=== PATIENT | female | born 1995 | race Asian ===

== ENCOUNTER 2017-04-16 12:01 | Emergency (ER) | payer BC ==
[2017-04-16 12:19] VITALS: BP 101/76; PULSE 75; RESP 17; TEMP 99; O2SAT 96
--- NOTE | 2017-04-16 13:39 | EDPHY ---
H & P Stated Complaint: blood in urine/?uti for 2 weeks/resistant to abx/may have had trauma to ure HPI/ROS: HPI CHIEF COMPLAINT: Dysuria HISTORY OF PRESENT ILLNESS: This patient very pleasant 21-year-old female she is otherwise healthy no significant medical history she reports to me 2 weeks ago she developed a urinary tract infection she was seen at her doctor's office and a urine culture was sent she was placed on Macrobid she did grow out E coli she reports. She completed the course of back orbit and felt better. This was 2 weeks ago or 2 Monday days ago. She intermittently had intercourse over the past 2 weeks and she knows after having intercourse she had some blood in her urine and dysuria. She decided come to the emergency room today as she has ongoing dysuria is concerned she may have a recurrent urinary tract infection. Additionally she reports that she may have had trauma to her urethra during intercourse. She is concerned that she may have trauma. She denies any external visible trauma. She denies back pain, fever, vomiting or nausea. Main complaint is dysuria. Has seen some blood in her urine. Past Medical History: Denies medical history Past Surgical History: Denies surgical history Social History: Denies daily use drugs alcohol tobacco products. [employer] student. Family History: Noncontributory ROS REVIEW OF SYSTEMS: A comprehensive 10 point review of systems is otherwise negative aside from elements mentioned in the history of present illness. Exam Constitutional appears well nontoxic triage nursing summary reviewed, vital signs reviewed, awake/alert. Eyes normal conjunctivae and sclera, EOMI, PERRLA. HENT normal inspection, atraumatic, moist mucus membranes, no epistaxis, neck supple/ no meningismus, no raccoon eyes. Respiratory clear to auscultation bilaterally, normal breath sounds, no respiratory distress, no wheezing. Cardiovascular rate normal, regular rhythm, no murmur, no edema, distal pulses normal. Gastrointestinal soft, non-tender, no rebound, no guarding, normal bowel sounds, no distension, no pulsatile mass. Genitourinary no CVA tenderness. I did evaluate her urethra externally. Valeria RN at bedside as business development recruiter. Tampon in place. I do not appreciate any abnormality of her external urethral opening. No visible trauma. Musculoskeletal no midline vertebral tenderness, full range of motion, no calf swelling, no tenderness of extremities, no meningismus, good pulses, neurovascularly intact. Skin pink, warm, & dry, no rash, skin atraumatic. Neurologic awake, alert and oriented x 3, AAOx3, moves all 4 extremities equally, motor intact, sensory intact, CN II-XII intact, normal cerebellar, normal vision, normal speech. Psychiatric normal mood/affect. Heme/Lymph/Immune no lymphadenopathy. Differential Diagnosis: Includes but is not limited to in a particular order, UTI, cystitis, urethritis, urethral tear STI. Medical Decision Making: Plan for this patient external vaginal exam to evaluate urethral pain. Send UA and urine culture. Started on Keflex and Pyridium. Referral to Urology. Return precautions given to the patient as well. 1447: Urine culture sent. Will treat for UTI given symptoms. Prescription for Keflex and Pyridium. Patient understands to follow up with her primary care doctor or urologist. Return emergency room if worsening symptoms questions concerns she understands. Source: Patient - Personal History LMP (Females 10-55): Over 28 Days Ago Current Tetanus/Diphtheria Vaccine: Yes - Medical/Surgical History Hx Asthma: No Hx Chronic Respiratory Disease: No Hx Diabetes: No Hx Cardiac Disease: No Hx Renal Disease: No Hx Cirrhosis: No Hx Alcoholism: No Hx HIV/AIDS: No Hx Splenectomy or Spleen Trauma: No Other PMH: ear tumor - Social History Smoking Status: Never smoked Constitutional: Initial Vital Signs Temperature (C) 37.2 C 04/16/17 12:15 Heart Rate 75 04/16/17 12:15 Respiratory Rate 17 04/16/17 12:15 Blood Pressure 101/76 04/16/17 12:15 O2 Sat (%) 96 04/16/17 12:15 O2 Delivery Mode Room Air Allergies/Adverse Reactions: No Known Allergies Allergy (Unverified 04/16/17 12:14) Home Medications: Medication Instructions Recorded Cephalexin [Keflex] 500 mg PO Q6H #28 cap 04/16/17 Nitrofurantoin 04/16/17 Phenazopyridine HCl [Pyridium] 200 mg PO TID #6 tab 04/16/17 Medical Decision Making - Data Points Laboratory Results: 04/16/17 12:20 Urine Color YELLOW Urine Appearance CLEAR Urine pH 6.0 (5.0-7.5) Ur Specific [place] 1.016 (1.002-1.030) Urine Protein NEGATIVE (NEGATIVE) Urine Ketones NEGATIVE (NEGATIVE) Urine Blood NEGATIVE (NEGATIVE) Urine Nitrate NEGATIVE (NEGATIVE) Urine Bilirubin NEGATIVE (NEGATIVE) Urine Urobilinogen NEGATIVE EU EU (0.2-1.0) Ur Leukocyte Esterase NEGATIVE (NEGATIVE) Urine RBC 1-3 /hpf /hpf (0-3) Urine WBC 1-3 /hpf /hpf (0-3) Ur Epithelial Cells TRACE /lpf /lpf (NONE-1+) Hyaline Casts 1-5 /lpf /lpf (0-1) Urine Mucus TRACE /lpf /lpf (NONE-1+) Urine Glucose NEGATIVE (NEGATIVE) Departure - Departure Disposition: Home, Routine, Self-Care Clinical Impression: Urinary tract infection Qualifiers: Urinary tract infection type: acute cystitis Hematuria presence: with hematuria Qualified Code(s): N30.01 - Acute cystitis with hematuria Condition: Good Instructions: Urinary Tract Infection in Women (ED), Dysuria (ED) Referrals: NONE *PRIMARY CARE P,. [Primary Care Provider] - As per Instructions Yahaira Buckley MD [Medical Doctor] - As per Instructions Prescriptions: Cephalexin [Keflex] 500 mg PO Q6H #28 cap Phenazopyridine HCl [Pyridium] 200 mg PO TID #6 tab
[2017-04-16 14:00] LABS: COLOR YELLOW; LEUKOCYTE ESTERASE,URINE NEGATIVE (NEGATIVE); NITRITE,URINE NEGATIVE (NEGATIVE)
[2017-04-16 14:02] LABS: MUCUS TRACE /lpf (NONE-1+)
== END 2017-04-16 14:54 | disposition home or self-care (01) ==
DX: N30.01 Acute cystitis with hematuria (principal); B96.89 Other specified bacterial agents as the cause of diseases classified elsewhere

== ENCOUNTER 2018-03-01 14:12 | Emergency (ER) | payer BC ==
[2018-03-01 14:54] LABS: PLATELET COUNT 263 10^3/uL (150-400)
--- NOTE | 2018-03-01 15:27 | EDPHY ---
H & P Time Seen by Provider: 03/01/18 14:13 HPI/ROS: CHIEF COMPLAINT: Near syncope HISTORY OF PRESENT ILLNESS: 22-year-old female presents to the emergency department by ambulance after having a near syncopal episode. The patient was going to the bathroom in the injuring building and was feeling lightheaded. She lowered herself to the ground and had a near syncopal episode. She has on the 1st day of her menstrual cycle. She has had similar symptoms in the past with syncope which she thought was associated with her. A few months ago. She denies . She has some mild abdominal cramping associated with her period. No back pain. No pain in her chest or difficulty breathing. No recent URI symptoms. No reported trauma. No seizure activity or postictal state. She currently she states she is feeling much better. REVIEW OF SYSTEMS: Constitutional: No fever, no chills. Eyes: No double or blurry vision. ENT: No sore throat. Respiratory: No cough, no shortness of breath. Cardiac: No chest pain. Gastrointestinal: As above. No vomiting or diarrhea. Genitourinary: No dysuria. Musculoskeletal: No neck or back pain. Skin: No rashes. Neurological: No headache. Past Medical/Surgical History: Cholesteatoma right ear, currently on the topical metronidazole for bacteria vaginosis. Social History: [employer] student Smoking Status: Never smoked Physical Exam: General Appearance: Alert, no distress. Mentating normally and answering questions appropriately. Eyes: Pupils equal and round. Extraocular motions are all intact. ENT: Mouth: Mucous membranes moist. Scar tissue noted to the right tympanic membrane. Respiratory: No wheezing, rhonchi, or rales, lungs are clear to auscultation. Cardiovascular: Regular rate and rhythm. Gastrointestinal: Abdomen is soft and nontender, no masses, no rebound or guarding, bowel sounds normal. Neurological: Alert and oriented x 3, cranial nerves II through XII grossly intact Skin: Warm and dry, no rashes. Musculoskeletal: Nontender to palpate along the cervical, thoracic or lumbar spine. Neck is supple. Extremities: Full range of motion and no peripheral edema. Psychiatric: Patient is oriented X 3, there is no agitation. Constitutional: Initial Vital Signs Temperature (C) 36.7 C 03/01/18 14:38 Heart Rate 66 03/01/18 14:38 Respiratory Rate 18 03/01/18 14:38 Blood Pressure 104/66 03/01/18 14:38 O2 Sat (%) 100 03/01/18 14:38 O2 Delivery Mode Room Air Allergies/Adverse Reactions: azithromycin Allergy (Verified 03/01/18 14:37) Home Medications: Medication Instructions Recorded Flagyl 03/01/18 Medical Decision Making - Diagnostics EKG Interpretation: EKG revealed with Dr. Amarjit Pineda revealing normal sinus rhythm. See interpretation in trace master. ED Course/Re-evaluation: 22-year-old female presents to the emergency department after having a near syncopal episode. Patient received IV normal saline. She had laboratory studies including CBC and chemistries were within normal limits. HCG was negative. Patient was observed for over 1 hr in the emergency department and was feeling much better. She was drinking juice. She is comfortable being discharged home. The case was discussed with Dr. Amarjit Pineda, secondary supervising physician, who did not directly evaluate the patient but agrees with treatment and plan. Differential Diagnosis: Syncope including but not limited to vasovagal syncope, arrhythmia, dehydration , and blood loss. - Data Points Laboratory Results: Laboratory Results 03/01/18 14:20 03/01/18 14:20 03/01/18 03/01/18 03/01/18 14:20 14:20 14:20 WBC 6.60 10^3/uL 10^3/uL (3.80-9.50) RBC 3.65 10^6/uL L 10^6/uL (4.18-5.33) Hgb 11.0 g/dL L g/dL (12.6-16.3) Hct 33.7 % L % (38.0-47.0) MCV 92.3 fL fL (81.5-99.8) MCH 30.1 pg pg (27.9-34.1) MCHC 32.6 g/dL g/dL (32.4-36.7) RDW 14.1 % % (11.5-15.2) Plt Count 263 10^3/uL 10^3/uL (150-400) MPV 8.9 fL fL (8.7-11.7) Neut % (Auto) 71.8 % % (39.3-74.2) Lymph % (Auto) 20.5 % % (15.0-45.0) Coke % (Auto) 6.5 % % (4.5-13.0) Eos % (Auto) 0.6 % % (0.6-7.6) Baso % (Auto) 0.3 % % (0.3-1.7) Nucleat RBC Rel Count 0.0 % % (0.0-0.2) Absolute Neuts (auto) 4.74 10^3/uL 10^3/uL (1.70-6.50) Absolute Lymphs (auto) 1.35 10^3/uL 10^3/uL (1.00-3.00) Absolute Monos (auto) 0.43 10^3/uL 10^3/uL (0.30-0.80) Absolute Eos (auto) 0.04 10^3/uL 10^3/uL (0.03-0.40) Absolute Basos (auto) 0.02 10^3/uL 10^3/uL (0.02-0.10) Absolute Nucleated RBC 0.00 10^3/uL 10^3/uL (0-0.01) Immature Gran % 0.3 % % (0.0-1.1) Immature Gran # 0.02 10^3/uL 10^3/uL (0.00-0.10) Sodium 139 mEq/L mEq/L (135-145) Potassium 3.9 mEq/L mEq/L (3.3-5.0) Chloride 103 mEq/L mEq/L (97-110) Carbon Dioxide 24 mEq/l mEq/l (22-31) Anion Gap 12 mEq/L mEq/L (8-16) BUN 16 mg/dL mg/dL (7-23) Creatinine 0.5 mg/dL L mg/dL (0.6-1.0) Estimated GFR > 60 Glucose 94 mg/dL mg/dL (70-100) Calcium 9.4 mg/dL mg/dL (8.5-10.4) Beta HCG, Qual NEGATIVE Departure - Departure Disposition: Home, Routine, Self-Care Clinical Impression: Near syncope Condition: Good Instructions: Near Syncope (ED) Additional Instructions: Diet and activity as tolerated. Follow up with her primary care provider at [facility] to recheck. Return to the emergency department sooner if you have any change in symptoms or if you feel worse in any way. Referrals: [facility] [Outside] - 2-3 days without fail
[2018-03-01 15:42] VITALS: BP 110/68
--- NOTE | 2018-03-03 21:20 | CPEKG ---
Test Reason : OPEN Blood Pressure : / mmHG Vent. Rate : 053 BPM Atrial Rate : 053 BPM P-R Int : 126 ms QRS Dur : 081 ms QT Int : 477 ms P-R-T Axes : 013 064 046 degrees QTc Int : 448 ms Sinus rhythm Confirmed by Lesli Thomas ([id number]) on 03/03/2018 9:20:02 PM Referred By: Confirmed By:Lesli Thomas
== END 2018-03-01 15:42 | disposition home or self-care (01) ==
LOC: EDUNIT#
DX: R55 Syncope and collapse (principal)